=== PATIENT | female | born 1990 | race Caucasian/White ===

== ENCOUNTER 2017-12-16 14:05 | Emergency (ER) | END 2017-12-16 20:00 | disposition left against medical advice (07) ==

== ENCOUNTER 2018-06-13 22:06 | Emergency (ER) | END 2018-06-14 05:58 | disposition home or self-care (01) ==

== ENCOUNTER 2019-05-05 08:30 | Emergency (ER) | payer OTHER ==
[~2019-05-05] VITALS: Ht 157.5 cm; Wt 120.7 kg
[~2019-05-05 08:30] MED LIST: ACET1TAB40 PO; CEPH-443 PO; IBUP-1544 PO; TYL500 PO; ZOF8 PO
[2019-05-05 08:54] VITALS: BP 147/86; PULSE 96; RESP 18; Ht 157.5 cm; Wt 120.7 kg
[2019-05-05] MEDS ORDERED: IBUP800T48 PO (09:10)
[2019-05-05] MEDS ORDERED: ALBU8.5H8 INH (09:10)
[2019-05-05] MEDS ORDERED: AZIT250T PO (09:10)
--- NOTE | 2019-05-05 09:12 | ERD ---
ER Documentation Chief Complaint Chief Complaint Sore throat x 2 days. Seen at urgent care given PCN needs med switch. HPI 28-year-old female presents the emergency department complaining of a sore throat. Patient states that over the last 2 days she is had a sore throat with upper respiratory nasal congestion. She is had a cough without sputum production or shortness of breath. She states that she has been using her inhalers at home and has had no worsening wheezing over her baseline. She reports that she saw white spots in the back of her throat today and came to the emergency department for evaluation. She states that she has had a low-grade fever, but no obstructive symptoms. She is had no change in her voice. ROS All systems reviewed and are negative except as per history of present illness. Medications Home Meds Active Scripts Albuterol Sulfate* (Proair HFA*) 8.5 Gm Hfa.aer.ad, 2 PUFF INH Q4H PRN for WHEEZING AND SOB, #1 INHALER Prov:DAI BECERRIL 05/05/19 Ibuprofen* (Motrin*) 800 Mg Tab, 800 MG PO Q6H PRN for PAIN AND OR ELEVATED TEMP, #30 TAB Prov:DAI BECERRIL 05/05/19 Azithromycin* (Zithromax*) 250 Mg Tablet, 250 MG PO .ZPACK DIRECTED, #6 TAB TAKE 500 MG (2 TABS) THE FIRST DAY THEN 250 MG (1 TAB) DAYS 2-5 Prov:DAI BECERRIL 05/05/19 Acetaminophen* (Tylenol*) 500 Mg Tab, 500 MG PO Q4H PRN for MILD PAIN LEVEL 1-3, #14 TAB Prov:ESTEBAN FARLEY DO 06/14/18 Cephalexin* (Keflex*) 500 Mg Capsule, 500 MG PO QID for 5 Days, CAP Prov:LISA WHITNEY MD 08/10/15 Ondansetron Hcl* (Zofran* ODT) 8 mg -ODT Tab.disper, 8 MG PO Q6 PRN for NAUSEA AND/OR VOMITING, #8 TAB Prov:LISA WHITNEY MD 08/10/15 Acetaminophen-Codeine* (Acetaminophen-Cod #3*) 300-30 Mg Tab, 1 TAB PO Q4H PRN for PAIN, #10 TAB Prov:ULYSSES DALLAS NP 08/04/15 Ibuprofen* (Ibuprofen*) 800 Mg Tablet, 800 MG PO Q8, #30 TAB Prov:ULYSSES DALLAS NP 08/04/15 Allergies Allergies: Coded Allergies: Penicillins (Verified Allergy, Unknown, 02/17/15) diphenhydramine (Verified Allergy, Unknown, 02/17/15) latex (Verified Allergy, Unknown, 02/17/15) PMhx/Soc History of Surgery: No Anesthesia Reaction: No Hx Neurological Disorder: No Hx Respiratory Disorders: No Hx Cardiac Disorders: No Hx Psychiatric Problems: No Hx Miscellaneous Medical Probl: Yes (BLE EDEMA, DEVELOPMENTAL DELAY) Hx Alcohol Use: No Hx Substance Use: No Hx Tobacco Use: No Physical Exam Vitals Vital Signs Date Temp Pulse Resp B/P (MAP) Pulse Ox O2 O2 Flow FiO2 Time Delivery Rate 05/05/19 98.1 96 18 147/86 98 08:54 (106) Physical Exam GENERAL: The patient is well developed and appropriate for usual state of health in no apparent distress HEENT: Pupils equal, round, and reactive to light. EOMI. There is no scleral icterus. Oropharynx is erythematous with tonsillar hypertrophy and exudate. Uvula is midline. There is no evidence of abscess or deep space tissue infection. NECK: C-spine is soft and supple, there is no meningismus. There is no cervical lymphadenopathy. LUNGS: Clear to auscultation bilaterally. There are no rales, wheezes or rhonchi. HEART: Regular rate and rhythm, no murmurs, clicks, rubs or gallops. Procedures/MDM Patient was taken to a room, seen and examined Medical decision makin-year-old female presents the emergency department with an exudative pharyngitis. At this time, based on conversations with the patient, she is requesting an antibiotic which seems appropriate given the high likelihood of strep. Patient appears to be clinically nontoxic with no evidence of abscess or deep space tissue infection or obstruction and seems appropriate for discharge at this time. Departure Diagnosis: Primary Impression: Sore throat Condition: Stable Patient Instructions: Self-Care for Sore Throats Referrals: [facility] [place] (PCP) DIA BECERRIL May 05, 2019 09:12
== END 2019-05-05 09:27 | disposition home or self-care (01) ==
LOC: FTE 08:30
DX: J02.9 Acute pharyngitis, unspecified (principal); Z91.040 Latex allergy status
CPT/HCPCS: 99283

== ENCOUNTER 2019-07-22 07:51 | Emergency (ER) | payer OTHER ==
[~2019-07-22] VITALS: Ht 162.6 cm; Wt 121.0 kg
[~2019-07-22 07:51] MED LIST changes: +ALBU8.5H8 INH; +ALPR0.5T PO; +AMPH30TA9 ORAL; +AZIT250T PO; +IBUP800T48 PO
[2019-07-22 07:57] VITALS: BP 142/83; PULSE 67; RESP 18; Ht 162.6 cm; Wt 121.0 kg
== END 2019-07-22 10:09 | disposition home or self-care (01) ==
LOC: E/R 07:51 → EEVIPCON 07:51 → E/R 10:09
DX: T76.21XA Adult sexual abuse, suspected, initial encounter (principal); R40.2142 Coma scale, eyes open, spontaneous, at arrival to emergency department; R40.2362 Coma scale, best motor response, obeys commands, at arrival to emergency department; R40.2252 Coma scale, best verbal response, oriented, at arrival to emergency department; Z91.040 Latex allergy status
CPT/HCPCS: 99283

== ENCOUNTER 2019-08-10 | Emergency (ER) | payer SELFPAY ==
[~2019-08-10] VITALS: Ht 157.5 cm; Wt 121.1 kg
[~2019-08-10] MED LIST changes: -ACET1TAB40 PO; -ALBU8.5H8 INH; -AZIT250T PO; -CEPH-443 PO; -IBUP-1544 PO; -IBUP800T48 PO; -TYL500 PO; -ZOF8 PO
[2019-08-10 00:03] VITALS: BP 148/82; PULSE 114; RESP 20; Ht 157.5 cm; Wt 121.1 kg
== END 2019-08-10 02:00 | disposition left against medical advice (07) ==
LOC: E/R
DX: Z53.21 Procedure and treatment not carried out due to patient leaving prior to being seen by health care provider (principal)